=== PATIENT | male | born 1980 | race Caucasian/White ===

== ENCOUNTER 2016-08-17 00:10 | Emergency (ER) | payer MEDICAID ==
[2016-08-17 02:31] VITALS: BP 145/91
== END 2016-08-17 02:31 | disposition home or self-care (01) ==
LOC: ED 00:10
DX: M54.5 Low back pain (principal)

== ENCOUNTER 2016-09-13 15:08 | Inpatient (IN) | payer MEDICAID ==
[~2016-09-13] VITALS: Ht 172.7 cm; Wt 91.4 kg
[2016-09-13 17:26] LABS: BASOPHIL % 0.5 % (0-2); PLATELET COUNT 236 x10^3mcL (130-400); RED CELL DISTRIBUTION WIDTH 13.2 % (11.5-14.5)
[2016-09-13 17:36] LABS: CALCIUM 8.9 mg/dL (8.5-10.1); CARBON DIOXIDE 28.1 mmol/L (21-32); CHLORIDE SERUM 102 mmol/L (98-107); GFR1 > 60 mL/min; GLUCOSE SERUM 98 mg/dL (74-106); POTASSIUM SERUM 3.7 mmol/L (3.5-5.1); SODIUM SERUM 136 mmol/L (136-145)
[2016-09-13 17:43] LABS: ALBUMIN 4.1 g/dL (3.4-5.0); ALKALINE PHOSPHATASE 115 U/L (46-116); ALT/SGPT 95 U/L (16-63); AST/SGOT 34 U/L (15-37); BILIRUBIN TOTAL 1.1 mg/dL (0.20-1.00); LIPASE 209 IU/L (73-393)
[2016-09-13 17:45] LABS: TOTAL PROTEIN, SERUM 8.3 g/dL (6.4-8.2)
[2016-09-13 20:19] VITALS: BP 135/79
[2016-09-13 21:24] LABS: PHOSPHOROUS 3.8 mg/dL (2.5-4.9)
[2016-09-13 21:35] LABS: FREE THYROXINE INDEX 2.7 ug/dL (1.4-4.5); T3 TOTAL 1.21 ng/mL; T4(THYROXINE) 8.2 ug/dL (4.7-13.3)
[2016-09-14 00:30] VITALS: BP 125/71
[2016-09-14 06:21] LABS: PLATELET COUNT 251 x10^3mcL (130-400); RED CELL DISTRIBUTION WIDTH 13.6 % (11.5-14.5)
[2016-09-14 06:34] LABS: CALCIUM 8.7 mg/dL (8.5-10.1); CHLORIDE SERUM 103 mmol/L (98-107); CHOLESTEROL 159 mg/dL (<200); CHOLESTEROL/HDL RATIO 3.8; GFR1 > 60 mL/min; GLUCOSE SERUM 152 mg/dL (74-106); HDL CHOLESTEROL 42 mg/dL (40-60); POTASSIUM SERUM 4.4 mmol/L (3.5-5.1); SODIUM SERUM 138 mmol/L (136-145); TRIGLYCERIDES 40 mg/dL (<150)
[2016-09-14 06:57] VITALS: BP 107/65
[2016-09-14 07:50] LABS: BASOPHIL % 0 % (0-2)
[2016-09-14 08:59] VITALS: BP 108/65
[2016-09-14 11:08] LABS: microscopic required? NO
[2016-09-14 11:20] LABS: UA SPECIFIC GRAVITY 1.015 (1.005-1.035); urine erythrocyte NEGATIVE (NEGATIVE)
[2016-09-14 12:05] LABS: AMPHETAMINE QUAL UR NONE DETECTED (NEG <=1000)
[2016-09-14 17:55] VITALS: BP 140/80
[2016-09-14 21:15] VITALS: BP 96/54
[2016-09-15 05:54] VITALS: BP 113/77
[2016-09-15 06:35] LABS: BASOPHIL % 0.2 % (0-2); PLATELET COUNT 251 x10^3mcL (130-400); RED CELL DISTRIBUTION WIDTH 13.6 % (11.5-14.5)
[2016-09-15 09:50] VITALS: BP 140/84
[2016-09-15 17:56] VITALS: BP 122/82
[2016-09-15 22:03] VITALS: BP 108/61
[2016-09-16 06:16] LABS: BASOPHIL % 0.6 % (0-2); PLATELET COUNT 280 x10^3mcL (130-400); RED CELL DISTRIBUTION WIDTH 13.3 % (11.5-14.5)
[2016-09-16 07:00] VITALS: BP 106/80
[2016-09-16 09:18] VITALS: BP 124/81
[2016-09-16] MEDS ORDERED: APAP/HYDROCODON1 T13 PO (10:43)
[2016-09-16] MEDS ORDERED: COL100 PO (10:43)
[2016-09-16 12:12] VITALS: BP 124/81
== END 2016-09-16 12:57 | disposition home or self-care (01) | DRG 225 ==
LOC: ED 15:08 → DU 19:16 → MU 19:16 → DU 20:11 → MU 09-14 08:57
PROVIDERS: Emergency Medicine; Surgery; ADMIT Family Medicine
PROC: 0DTJ4ZZ Resection of Appendix, Percutaneous Endoscopic Approach (ICD-10-PCS; principal; 2016-09-13 22:00)
DX: K35.80 Unspecified acute appendicitis (principal); F14.10 Cocaine abuse, uncomplicated; J38.5 Laryngeal spasm; K57.30 Diverticulosis of large intestine without perforation or abscess without bleeding; R74.0 Nonspecific elevation of levels of transaminase and lactic acid dehydrogenase [LDH]; E78.5 Hyperlipidemia, unspecified; D72.829 Elevated white blood cell count, unspecified; T38.0X5A Adverse effect of glucocorticoids and synthetic analogues, initial encounter; Y92.238 Other place in hospital as the place of occurrence of the external cause; Z68.30 Body mass index [BMI] 30.0-30.9, adult
CPT/HCPCS: 84439; 94150; J0330; J1170; J1200; J2270; J2405; J2543; J2704; J2710; J2930; J3010; J3490; J7030; J7120; Q0092; Q0163; Q9967

== ENCOUNTER 2016-10-22 20:35 | Emergency (ER) | payer MEDICAID ==
[~2016-10-22 20:35] MED LIST: APAP/HYDROCODON1 T13 PO; COL100 PO
[2016-10-23 00:41] VITALS: BP 130/68
== END 2016-10-23 00:41 | disposition home or self-care (01) ==
LOC: ED 20:35
DX: K91.89 Other postprocedural complications and disorders of digestive system (principal); R10.32 Left lower quadrant pain; Z90.89 Acquired absence of other organs

== ENCOUNTER 2017-04-09 03:38 | Emergency (ER) | payer MEDICAID ==
[~2017-04-09] VITALS: Ht 170.2 cm; Wt 94.8 kg
[2017-04-09 03:41] VITALS: Ht 170.2 cm; Wt 94.8 kg
[2017-04-09 05:21] VITALS: BP 147/98
== END 2017-04-09 05:00 | disposition home or self-care (01) ==
LOC: ED 03:38
DX: B35.6 Tinea cruris (principal); R03.0 Elevated blood-pressure reading, without diagnosis of hypertension

== ENCOUNTER 2017-05-19 02:29 | Emergency (ER) | payer MEDICAID ==
[2017-05-19 05:53] VITALS: BP 140/93
== END 2017-05-19 05:53 | disposition home or self-care (01) ==
LOC: ED 02:29
DX: I86.1 Scrotal varices (principal); N50.812 Left testicular pain
CPT/HCPCS: Q0092

== ENCOUNTER 2017-09-13 21:29 | Emergency (ER) | payer MEDICAID ==
[~2017-09-13] VITALS: Ht 167.6 cm; Wt 94.3 kg
[2017-09-13 21:37] VITALS: Ht 167.6 cm; Wt 94.3 kg
[2017-09-13 23:50] VITALS: BP 146/99
== END 2017-09-13 23:50 | disposition home or self-care (01) ==
LOC: ED 21:29
DX: M79.1 Myalgia (principal); Z90.49 Acquired absence of other specified parts of digestive tract

== ENCOUNTER 2019-02-24 23:20 | Emergency (ER) | payer MEDICAID ==
[~2019-02-24] VITALS: Ht 167.6 cm; Wt 92.6 kg
[2019-02-25 00:45] VITALS: BP 149/93
== END 2019-02-25 00:45 | disposition home or self-care (01) ==
LOC: ED 23:20
DX: J39.8 Other specified diseases of upper respiratory tract (principal); Z90.89 Acquired absence of other organs
CPT/HCPCS: J7512